=== PATIENT | male | born 1995 ===

== ENCOUNTER 2019-07-14 13:34 | Emergency (ER) | payer OTHER, SELFPAY ==
--- NOTE | ~2019-07-14 | XR_ITS ---
EXAMINATION: XR chest 1V portable DATE: 07/14/2019 14:13 INDICATION: Cough. Dyspnea. TECHNIQUE: frontal view of the chest was obtained. COMPARISON: None FINDINGS: The cephalad-most tip of the right apex is excluded from the [id number]. The lungs are clear with no focal airspace opacities, pulmonary edema, pleural effusion or pneumothorax. The cardiomediastinal silhouette is normal. Visualized bones and soft tissues are unremarkable. IMPRESSION: 1. No acute cardiopulmonary disease. Reviewed, dictated and finalized at location A.
[2019-07-14 13:43] VITALS: BP 144/90; PULSE 105; RESP 18; TEMP 36.9; O2SAT 100
--- NOTE | 2019-07-14 13:43 | ED.ABDPAIN ---
HPI - Abdominal Pain General Chief Complaint: Shortness of Breath/Dyspnea Stated Complaint: sob, cough Time Seen by Provider: 07/14/19 13:37 Source: patient Mode of arrival: ambulatory Limitations: no limitations History of Present Illness HPI narrative: Patient is a 24-year-old gentleman who presents for evaluation of cough and shortness of breath. Patient reports a 4-day history of worsening shortness of breath, states that he has also had chest tightness and chest pain. He recently began smoking cigarettes 2 weeks ago because he was bored, and states that smoking cigarettes actually makes his chest pain improved. He denies any leg swelling or pain. No fever, chills, congestion, rhinorrhea or sore throat. Patient was in [place] 1 month ago. He denies any immunocompromise states. He denies any diarrhea or urinary symptoms. Related Data Allergies Allergy/AdvReac Type Severity Reaction Status Date / Time Sulfa (Sulfonamide Allergy Unknown Verified 07/14/19 13:49 Antibiotics) Review of Systems Review of Systems: Narrative: CONSTITUTIONAL: Denies fever, chills, or sweats. EYES: Denies visual changes, redness, or discharge. ENT: Denies rhinorrhea, congestion, sore throat, or otalgia. CARDIOVASCULAR: Reports chest pain, denies edema RESPIRATORY: Reports dry cough and shortness of breath GASTROINTESTINAL: Denies abdominal pain, nausea, vomiting, or diarrhea. GENITOURINARY: Denies dysuria or hematuria. SKIN: Denies rash or itching. MUSCULOSKELETAL: Denies back pain, joint pain, or myalgia. NEUROLOGIC: Denies headache, numbness, or weakness. PMFSH Surgical History Surgical History (Updated 07/14/19 @ 14:15 by Aime Alexander) Hx of removal of cyst testicular Social History Social History (Updated 07/14/19 @ 14:15 by Aime Alexander) Smoking status: Current every day smoker Gender identity (if verbalized by the patient): Male Exam Narrative: Exam Narrative: GENERAL: Well-appearing, well-nourished, and in no acute distress. HEAD: Normocephalic, atraumatic. EYES: PERRLA and EOMI. ENT: Nares clear, no rhinorrhea or epistaxis. Mucous membranes moist. NECK: Supple. CHEST: Clear to auscultation. No wheezing. No respiratory distress. HEART: Mildly tachycardic rate and sinus rhythm. No murmur heard. Normal peripheral pulses. ABDOMEN: Soft, nontender, nondistended, normal active bowel sounds. EXTREMITIES: Normal range of motion. No edema. No calf tenderness or swelling. SKIN: Warm, dry, no rash. NEURO: No focal deficits. Alert and oriented x3 Course Course Emergency Course: Patient presented for evaluation of cough, chest pain and shortness of breath that has been present over the past several days. At the time of initial assessment, ABCs are intact, vital signs notable for mild tachycardia. Physical examination normal. Patient has no respiratory distress, no hypoxemia in the room. No leg swelling, calf pain or tenderness, no rashes. EKG without acute ischemic changes. There is an RSR prime without evidence of delta wave or Brugada syndrome. Troponin is undetected. D-dimer is not elevated. No pneumonia seen on chest x-ray. No lymphopenia or other symptoms that would be associated with elevated 19 infection. Patient was ambulated in the emergency department and had no hypoxemia. No respiratory distress. Unknown etiology of the patient's reported dyspnea. At present time in the emergency department, patient has had no hypoxemia or evidence of any respiratory distress or increased work of breathing. Patient was reassessed, feeling improved after fluids and anti-inflammatories. Considered vascular pathology, no back pain, no shoulder pain, no ripping or tearing sensation to the pain. In the setting of numerous days of symptoms with normal troponin, normal d-dimer, I would suspect this diagnosis to be unlikely in a young patient with stable vital signs. I advised patient to follow-up with his primary care provider, he may
[2019-07-14 13:48] VITALS: PULSE 116
--- NOTE | 2019-07-14 13:51 | ECG_ITS ---
Measurements Intervals [place] Rate: 102 P: 73 MT: 172 QRS: 57 QRSD: 90 T: 52 QT: 316 QTc: 413 Interpretive Statements SINUS TACHYCARDIA RSR' IN V1 OR V2, CONSIDER RIGHT VENTRICULAR HYPERTROPHY OR RIGHT VCD BORDERLINE ECG Electronically Signed On 07-14-2019 16:03:35 CDT by Simon Rojo D.O.
[2019-07-14 14:03] LABS: Basophils Absolute Auto 0.1 K/mm3 (0.0-0.1); Basophils Percent Auto 0.8 % (0.2-1.2); Eosinophils Absolute Auto 0.3 K/mm3 (0-0.3); Eosinophils Percent Auto 3.9 % (0-4.4); Hematocrit 47.6 % (42.0-52.0); Hemoglobin 16.4 g/dL (14.0-18.0); Immature Granulocyte Absolute 0.02 K/mm3 (0.00-0.031); Immature Granulocyte Percent A 0.3 % (0-0.5); Lymphocytes Percent Auto 32.3 % (18.3-44.2); Mean Corpuscular HGB Conc 34.5 g/dl (32-36); Mean Corpuscular Hemoglobin 30.3 pg (26-34); Mean Platelet Volume 11.2 fl (7.4-10.4); Monocytes Absolute Auto 0.8 K/mm3 (0.1-0.6); Monocytes Percent Auto 10.7 % (2.6-8.5); Platelet Count Result 259 k/mm3 (150-375); Red Blood Count 5.41 M/mm3 (4.6-6.20); Red Cell Distribution Width 12.1 % (11.5-14.5); White Blood Count 7.7 K/mm3 (4.5-10.0)
[2019-07-14 14:14] LABS: Prothrombin Time 12.4 Seconds (11.1-14.7)
[2019-07-14 14:15] LABS: Partial Thromboplastin Time 31.9 SECONDS (22.3-36.8)
[2019-07-14 14:17] LABS: Alveolar/Arterial O2 Gradient 31.6 mmHg; Base Excess ABG 2.9 mEq/l (+/-2.0); Carboxyhemoglobin 0.9 % THb (0-2.0); Device ROOM AIR; Fractional Inspired Oxygen 21 %; HCO3 ABG 26.4 mEq/l (22.0-26.0); Methemoglobin ABG 0.4 %THb (0-1.5); Modified Allen's Test Pass; Oxygen Saturation ABG 95.6 % (95.0-100.0); Oxyhemoglobin 93.8 % THb (90.0-100.0); PCO2 ABG 37.3 mmHg (35.0-45.0); PO2 ABG 73.5 mmHg (80.0-100.0); Reduced Hemoglobin 4.9 %THb (0-5.0); Site Drawn LEFT RADIAL; Total Hemoglobin 15.9 g/dL (12.0-18.0); pH ABG 7.468 (7.350-7.450)
[2019-07-14 14:20] LABS: Alanine Aminotransferase 45 U/L (4-50); Albumin Level 5.1 g/dL (3.5-5.1); Alkaline Phosphatase 75 U/L (38-126); Aspartate Amino Transferase 36 U/L (17-59); Bilirubin,Total 0.4 mg/dL (0.2-1.3); Blood Urea Nitrogen 18 mg/dL (9-20); CRP < 0.5 mg/dL (<1.0); Calcium 9.8 mg/dL (8.4-10.2); Carbon Dioxide 27 mmol/L (22-30); Chloride 100 mmol/L (98-107); Estimated CRCL calculation 98 ml/min; Estimated Glomerular Filt Rate > 60; Glucose 90 mg/dL (75-110); Lactate Dehydrogenase 491 U/L (313-618); Potassium 3.7 mmol/L (3.4-5.0); Sodium 141 mmol/L (137-145)
[2019-07-14] MEDS: ACETAMINOPHEN 500 MG TABLET 1000 MG PO (14:22)
[2019-07-14] MEDS: ASPIRIN 81 MG CHEWABLE TABLET 324 MG PO (14:22)
[2019-07-14] MEDS: KETOROLAC 15 MG/ML VIAL (*BKC) IV PUSH (14:22)
[2019-07-14] MEDS: SODIUM CHLORIDE 0.9% IV 1,000 ML 999 ML IV CONT (14:23)
[2019-07-14 14:29] LABS: Troponin I < 0.012 ng/mL (0.000-0.034)
[2019-07-14 14:48] LABS: D Dimer 0.34 ug/mL (<0.48)
[2019-07-14 15:33] VITALS: BP 132/80; PULSE 89; RESP 16; O2SAT 98
== END 2019-07-14 15:34 | disposition home or self-care (01) ==
PROVIDERS: Emergency Provider Emergency Medicine
DX: R07.89 Other chest pain (principal); F17.200 Nicotine dependence, unspecified, uncomplicated; R00.0 Tachycardia, unspecified; R94.31 Abnormal electrocardiogram [ECG] [EKG]
CPT/HCPCS: 36415; 36600; 71045; 80053; 82375; 82805; 83050; 83615; 84484; 85025; 85380; 85610; 85730; 86140; 93005; 96374; 99284; A9270; J1885; J7030